=== PATIENT | male | born 1990 | race African-American/Black ===

== ENCOUNTER 2017-05-24 14:19 | Emergency (ER) | payer SELFPAY ==
[~2017-05-24] VITALS: Ht 175.3 cm; Wt 78.0 kg
[~2017-05-24 14:19] MED LIST: ALBU2SYR PO; LEVO500T2 PO; NO HOME MEDS; TRAM50TA73 PO
[2017-05-24 17:01] LABS: CLARITY URINE CLEAR (CLEAR); COLOR URINE YELLOW (YELLOW); GLUCOSE URINE NEGATIVE (NEGATIVE); KETONES URINE 1+ (NEGATIVE); LEUKOCYTE ESTERASE URINE 1+ (NEGATIVE); NITRITE URINE NEGATIVE (NEGATIVE); OCCULT BLOOD URINE 1+ (NEGATIVE); PROTEIN URINE NEGATIVE (NEGATIVE); SPECIFIC GRAVITY URINE 1.012 (1.005-1.030); UROBILINOGEN URINE 0.2 E.U./dL (0.2-1.0)
[2017-05-24] MEDS ORDERED: FAMOTIDINE 20MG TABLET PO ONE (17:15)
[2017-05-24] MEDS ORDERED: MAGNESIUM/ALUMINUM HYDROXIDE/SIMETHICONE 30ML UDC PO ONE (17:15)
[2017-05-24 17:16] LABS: BASOPHILS % 0.5 % (0.0-2.0); EOSINOPHILS % 0.9 % (0.0-5.0); HEMATOCRIT. 40.1 % (42.0-52.0); HEMOGLOBIN. 13.7 g/dL (14.0-18.0); LYMPHOCYTES % 12.7 % (20.0-50.0); MEAN CORPUSCULAR HEMOGLOBIN 32.3 pg (28.0-32.0); MEAN CORPUSCULAR VOLUME 94.9 fL (80.0-94.0); MEAN PLATELET VOLUME 7.9 fl (7.4-10.4); MONOCYTES % 7.1 % (2.0-8.0); NEUTROPHILS % 78.8 % (40.0-76.0); PLATELET 342 x1000/uL (130-400); RED BLOOD CELL COUNT 4.23 mill/uL (4.7-6.1); RED CELL DISTRIBUTION WIDTH 14.4 % (11.6-14.6)
[2017-05-24 17:21] LABS: CHLORIDE 101 mEq/L (98-107)
[2017-05-24 17:22] LABS: CARBON DIOXIDE 26 mEq/L (21-32)
[2017-05-24] MEDS ORDERED: KETOROLAC 60MG/2ML VIAL IM ONE (18:15)
[2017-05-24 20:00] VITALS: BP 122/85
== END 2017-05-24 20:17 | disposition home or self-care (01) ==
LOC: ER 14:21
DX: R10.13 Epigastric pain (principal); F10.20 Alcohol dependence, uncomplicated
CPT/HCPCS: 36415; 80053; 81001; 83690; 85025; 96372; 99284; 99406; J1885; Z7610